=== PATIENT | female | born 1975 | race Caucasian/White ===

== ENCOUNTER 2018-05-01 07:43 | Day surgery (SDC) | payer BC, SELFPAY ==
[2018-05-01] VITALS (10 sets, daily range): BP systolic 107–138; BP diastolic 62–79; PULSE 60–71; RESP 11–19; TEMP 36.7–36.8; O2SAT 92–98
--- NOTE | 2018-05-01 06:40 | W.PM.DSUDISC ---
Discharge Plan Disposition Patient Disposition: HOME Condition: Good Discharge Details Reason For Visit: Laparoscopic Cholecystectomy Attending Provider: Elvi Najera Primary Care Provider: Aruna Sandra Home Meds and New Rx's Prescriptions: New acetaminophen [Tylenol Arthritis Pain] 650 mg tablet extended release 650 mg PO Q6H PRN PRN (Reason: pain) Qty: 30 RF: 0 ibuprofen 600 mg tablet 600 mg PO Q6H PRN (Reason: pain) Qty: 30 RF: 0 oxycodone 5 mg tablet 5 mg PO Q6H PRN (Reason: pain) Qty: 20 RF: 0 Continue metoprolol succinate 50 mg cap,sprinkle,ER 24hr dose pack 50 mg PO DAILY RF: 0 montelukast [Singulair] 10 mg tablet 10 mg PO QPM PRNRF: 0 loratadine [Allergy Relief (loratadine)] 10 mg tablet 10 mg PO DAILY PRNRF: 0 omeprazole 40 mg capsule,delayed release(DR/EC) 40 mg PO DAILY RF: 0 metoprolol succinate 100 mg cap,sprinkle,ER 24hr dose pack 100 mg PO DAILY RF: 0 rizatriptan [Maxalt] 10 mg tablet 10 mg PO ONCE PRNRF: 0 ciprofloxacin-hydrocortisone [Cipro HC] 0.2-1 % drops,suspension 3 drp OT BID PRNRF: 0 ascorbic acid (vitamin C) [Vitamin C] 100 mg Tablet 78 mg PO DAILY RF: 0 Discharge Instructions Instructions: Laparoscopic Cholecystectomy (DC) Additional Instructions: Follow up: 05/13/18 at 2:15 pm Medications: Tylenol 650 mg every 6 hours as needed Ibuprofen 600 mg every 6 hours as needed (may alternate with Tylenol. Example take Tylenol and 3 hours later may take ibuprofen) Oxycodon 5 mg every 6 hours as needed for severe pain Miralax 17 gm daily as needed for constipation Other: May shower tomorrow Do not soak incision for 1 week May use ice and/or heat to help with pain, swelling and bruising Walk around at least 4-5 times per day. Diet: Low fat for 2 weeks 1. Because there will be medication in your system for the next 24 hours, you may feel a little sleepy. Your coordination will be affected. Therefore: a. Do not drive or operate dangerous equipment for 24 hours. b. Do not drink alcohol beverages for 24 hours (not even beer). c. Plan to go home and rest for the day. 2. Generally the only restriction on your activity is no lifting, pulling or pushing more then 20 lb for 4 weeks. You may feel fatigued for 2-4 weeks. 3 After you arrive home you may have a light meal and return to a normal diet as you can tolerate it without feeling sick to your stomach. 4. After surgery, you may feel pain or discomfort. Take the medications as prescribed. 5. If there are any questions regarding the findings of your procedure, please feel free to contact your doctor. 6. If you are unable to contact your doctor with a problem, contact the hospital at [phone]. 7. Continue all your regular medications unless directed otherwise. 8. You are being prescribed a Narcotic pain medication. Narcotic pain medications have an addiction potential for everyone. It is important that you take the medication as prescribed There is a limit on how many tablets we can prescribed, this has been decided by the state Please keep the medications in a secure place and do not let anyone know you have them at home If you have medication left over please discard them by crushing them in a little water and mixing in used coffee grounds or cat litter and putting in the trash. I understand the above instructions and have no questions. Signature of Patient or Responsible Adult Escort Date/Time Name of Responsible Adult Escort Signature of Nurse Date/Time Activity:: No lifting, pushing, or pulling >20 lb x 2 weeks Diet:: low fat for 2 weeks Discharge Orders Discharge Orders: Discharge Order (Routine); Ordered 05/01/18 Ordered By: Elvi Najera DS: Diagnosis Discharge Diagnosis (1) Biliary dyskinesia: Status: Acute
[2018-05-01] MEDS: Lactated Ringers 1,000 ML 80 ML IV ×2 (08:40→11:53)
[2018-05-01] MEDS: CLINDAMYCIN 600 MG/50 ML BAG 100 MG IVPB (10:55)
--- NOTE | 2018-05-01 11:28 | GB_PTH ---
PATIENT: NANI LUND LOC: [facility] U#:[id number] AGE/SX: 42/F ROOM: RE05/01/[address]: Elvi aNjera MD : [id number] BED: DIS: 05/01/2018 SPEC #: [id number] RECD: 05/01/18 13:03 STATUS: KIM REIvon #: [id number] AGATHA: 05/01/18 11:[address]: Elvi Najera DEPT: Surgical Specimen RECD BY: Delilah Goss ENTERED: 05/01/18 13:04 SP TYPE: GB OTHR DR: Aruna Sandra Tissues: 1 - GALLBLADDER Procedures: GROSS AND MICRO LEVEL 3 Comments: [id number]
[2018-05-01] MEDS: Lidocaine 1% Pres-Free 5 ML VIAL (11:39)
[2018-05-01] MEDS: fentaNYL 100 MCG/2 ML VIAL IVP ×2 (12:11→12:16)
[2018-05-01] MEDS: HYDROmorphone 2 MG/ML VIAL IVP ×3 (12:25→13:00)
[2018-05-01] MEDS: Normal Saline Flush 10 ML SYR IV (12:25)
--- NOTE | 2018-05-01 12:46 | ROE_ITS ---
DATE OF SURGERY May 01, 2018 PREOPERATIVE DIAGNOSIS Biliary dyskinesia. POSTOPERATIVE DIAGNOSIS Biliary dyskinesia. PROCEDURE Laparoscopic cholecystectomy. ANESTHESIA General endotracheal anesthesia. ANESTHESIA PROVIDER Lew Perkins C.R.N.A. ASA-II SURGEON Butch Najera M.D. GAUGER DELIVERY LIGIA Hardy ESTIMATED BLOOD LOSS 50 cc SPECIMENS Gallbladder and contents. COMPLICATIONS No immediate complications. INDICATIONS Ms. Lerma is a 42-year-old female who has been having some right upper quadrant pain pretty random sometimes associated with food. Her primary care physician did a HIDA scan, which showed a very low ejection fraction. The risks, benefits and complications of the procedure were reviewed with the darien ent. Her questions were answered to her satisfaction and she wished to proceed. No guarantees were g iven or implied. DESCRIPTION OF PROCEDURES After informed consent was obtained, the patient was taken to the Operating Room, placed in the supin e position. SCDs and monitors were applied. She was then placed under general anesthesia and intuba karin without difficulty. Her abdomen was then prepped and draped in a sterile surgical fashion with C hlorhexidine. Next, 1% lidocaine mixed with 0.5% Marcaine was injected just above her umbilicus. A 5-mm incision was made. Towel clips were used to grasp the skin on either side of the incision, and a 5-mm port wa s then placed under direct visualization into the abdomen without difficulty. The abdomen was insuffl ated and the camera was placed. The bowel and omentum was inspected underneath the port and no injuri es were noted. Three more ports were then placed. One 11-mm port in the subxiphoid area, and two 5-mm ports in the right upper quadrant. Next, the gallbladder was grasped and tented towards to the right shoulder. A second grasper was placed on the neck of the gallbladder and tension was applied, this a llowed me to see the neck of the gallbladder. The stomach and duodenum were noted to be adhered to th e gallbladder. This was gently swept away with the [place] dissector. No cautery was used next to th e bowel or stomach. Once the stomach and duodenum were swept away, the cystic duct was identified, it was quite short; it was dissected 360 degrees right at the entrance into the gallbladder and then th ree clips were placed one proximal and two distal and the duct was cut. The cystic artery was then id entified and dissected 360 degrees, and two clips were placed, one proximal and one distal, and it wa s then cut with laparoscopic scissors. The gallbladder was then removed from the gallbladder bed usin bradley cautery. Once removed it was placed into an EndoCatch bag and pulled through the 11-mm port site wi thout difficulty. The port was replaced and the liver bed was inspected, a little bleeding was noted, this was cauterized. The clips were then inspected, there was some bleeding noted just above the cys tic duct, where the cystic artery was and so another clip was placed and this stopped the bleeding. T he abdomen was irrigated. All blood clots were removed. There was no bile leak noted. Once the efflue nt was clear, the ports were removed and the abdomen was deflated. The skin was then cleaned and drie d. All incisions were closed with #4-0 Vicryl. Skin Affix was then applied. Next, the patient was wok en up, extubated and taken back to Recovery in stable condition. Sponge, instrument and needle counts were correct x2 at the end of the case.
[2018-05-01] MEDS: oxyCODONE 5 MG TAB PO (13:59)
== END 2018-05-01 15:40 | disposition home or self-care (01) ==
LOC: SUR 07:46
PROVIDERS: PCP Internal Medicine; Visit Provider Surgery
PROC: 0FT44ZZ Resection of Gallbladder, Percutaneous Endoscopic Approach (ICD-10-PCS; CPT 47562; principal; 2018-05-01 09:00)
DX: K82.8 Other specified diseases of gallbladder (principal); K82.4 Cholesterolosis of gallbladder; K21.9 Gastro-esophageal reflux disease without esophagitis; I10 Essential (primary) hypertension
CPT/HCPCS: 47562; 81025; 88304; J2405; J3010